=== PATIENT | female | born 1980 | race Caucasian/White ===

== ENCOUNTER → 2017-01-22 | Outpatient (CLI) | payer BC | LOC: MHCPAIN 08:19 | DX: G89.29 Other chronic pain (principal); M54.12 Radiculopathy, cervical region; M54.81 Occipital neuralgia | CPT/HCPCS: G0463 ==

== ENCOUNTER → 2017-01-29 | Outpatient (CLI) | payer BC | LOC: MHCPAIN 08:15 | DX: M54.81 Occipital neuralgia (principal) | CPT/HCPCS: J1100 ==

== ENCOUNTER → 2017-02-01 | Outpatient (CLI) | payer BC | LOC: MHCPAIN 15:03 | DX: G89.29 Other chronic pain (principal); M54.81 Occipital neuralgia; R51 Headache | CPT/HCPCS: G0463 ==

== ENCOUNTER → 2017-02-13 | Outpatient (CLI) | payer BC | LOC: MHCPAIN 08:47 | DX: G89.29 Other chronic pain (principal); M54.81 Occipital neuralgia; R51 Headache; F17.210 Nicotine dependence, cigarettes, uncomplicated | CPT/HCPCS: G0463 ==